=== PATIENT | male | born 2000 | race Caucasian/White ===

== ENCOUNTER 2020-05-09 08:21 | Day surgery (SDC) | payer OTHER ==
[2020-05-09] MEDS ORDERED: CEFAZOLIN 2 GM/D5W RTU 2 GM/50 ML RTUPB IV ONE (09:16)
[2020-05-09] MEDS ORDERED: ONDANSETRON HCL INJ/PF 4 MG/2 ML SDV ONE (09:58)
[2020-05-09] MEDS ORDERED: MIDAZOLAM 2 MG/2 ML INJ ONE (09:58)
[2020-05-09] MEDS ORDERED: DEXMEDETOMIDINE INJ 80 MCG/20 ML VIAL IV ONE (09:59)
[2020-05-09] MEDS ORDERED: PROPOFOL INJ 200 MG/20 ML VIAL IV ONE (09:59)
[2020-05-09] MEDS ORDERED: HYDROMORPHONE HCL INJ/PF 2 MG/ML AMPULE ONE (09:59)
[2020-05-09] MEDS ORDERED: SUCCINYLCHOLINE CHLORIDE INJ 200 MG/10 ML VIAL ONE (09:59)
[2020-05-09] MEDS ORDERED: DEXAMETHASONE SOD PHOSPHATE INJ 4 MG/1 ML VIAL ONE (09:59)
[2020-05-09] MEDS ORDERED: DEXAMETHASONE SOD PHOS INJ 10 MG/1 ML VIAL ONE (10:01)
[2020-05-09] MEDS ORDERED: BUPIVACAINE HCL 0.5%/EPI 1:200000 INJ 1.8 ML CARTRIDGE ONE (10:03)
[2020-05-09] MEDS ORDERED: MINERAL OIL (STERILE) 10 ML VIAL ONE (10:03)
[2020-05-09] MEDS ORDERED: BALANCED SALT IRRIG SOLN COMB2 15 ML BOTTLE ONE (10:03)
[2020-05-09] MEDS ORDERED: TOBRAMYCIN SULFATE/DEXAMETH OPH OINTMENT 3.5 GM ONE (10:03)
[2020-05-09] MEDS ORDERED: OXYMETAZOLINE HCL 0.05% NASAL SPRAY 15 ML BOTTLE ONE (10:04)
[2020-05-09] MEDS ORDERED: BUPIVACAINE HCL 0.5%-EPI 1:200000 INJ/PF 30 ML VIAL ONE (10:04)
[2020-05-09] MEDS ORDERED: BACITRACIN ZINC OINTMENT 15 GM ONE (10:04)
[2020-05-09] MEDS ORDERED: LIDOCAINE 1%/EPINEPHRINE INJ 20 ML VIAL ONE (10:54)
[2020-05-09] MEDS ORDERED: OXYCODONE-ACETAMINOPHEN 5-325 MG TABLET ONE (15:40)
--- NOTE | 2020-05-16 19:25 | Operative Report ---
Operative Report-[facility] Operative Report: DATE OF OPERATION: May 09, 2020 PREOPERATIVE DIAGNOSES: 1. Nasal septal deviation, Acquired 2. Bilateral inferior turbinate hypertrophy 3. Nasal Deformities, Acquired 4. Chronic Nasal Dyspnea 5. History of nasal trauma POSTOPERATIVE DIAGNOSES: 1. Nasal septal deviation, Acquired 2. Bilateral inferior turbinate hypertrophy 3. Nasal Deformities, Acquired 4. Chronic Nasal Dyspnea 5. History of nasal trauma PROCEDURES: 1. Endonasal/closed septorhinoplasty with CPT code 83625 with bilateral and central bony nasal pyramid osteotomies, cartilaginous grafting, and major septal repair. 2. Bilateral intramural inferior turbinate reductions using submucus resection techniques SURGEON: Dr. Russ Guardado Anesthesia Staff: BRUNO Brower ANESTHESIA: General endotracheal tube anesthesia/GETA DRAINS: None SPONGE COUNT: Verified NEEDLE COUNT: Verified SPECIMEN/MATERIALS FORWARD TO THE LAB: None ESTIMATED BLOOD LOSS: 100 mL TOTAL IV FLUIDS: 750 mL COMPLICATIONS: None FINDINGS: 1. Major right nasal deviation involving bone and cartilage with nasal dorsal bony irregularities. 2. Major serpentine nasal septal deviations with septal fractures and excessive cartilage adjacent the maxillary crest and septal spur/maxillary crest spur noted. 3. Bilteral inferior turbinate hypertrophy. 4. Bulbous nasal tip with thick skin and soft tissue envelope and contour deformities. 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 The patient was referred for and they complained of a history of chronic nasal dyspnea over the years. The patient clinically is noted to have nasal septal deviations, bilateral turbinate hypertrophy, and nasal deformities as a result of nasal trauma while on active duty. The patient has desired to undergo nasal surgery to improve functional nasal airflow and overall quality of life. The septorhinoplasty with major septal repair and bilateral inferior turbinate reduction procedure/surgery, and all of the risks and complications were all discussed in detail with the patient. They voiced an understanding, agreed to proceed, and consent was obtained. DESCRIPTION OF OPERATIVE PROCEDURE: The patient was taken to the main operating room and placed on the operating room table in the supine position. Appropriate monitors were placed. Using mask and IV access general anesthesia was induced. The patient was then transorally intubated without difficulty. The table was next positioned for nasal surgery. The patient underwent a nasal examination and local anesthetic with epinephrine was administered to establish a nasal block. The patient next had two Afrin soaked neuropatties placed into each nasal passage. The patient was then prepped and draped in the usual fashion for nasal surgery. The neuropatties were removed and the patient underwent a hemitransfixion incision. There was elevation of the mucoperichondrial and mucoperiosteal flaps without difficulty. Findings are as noted above. The bony cartilaginous junction was identified and divided and the most deviated portions of the bony and cartilaginous septum were removed and there were septal cartilage fractures noted. The maxillary crest spur/septal spur was removed with a V-gouge. Excessive and damaged cartilage was removed and contoured. During the process the caudal septum was released from the anterior nasal spine and maxillary crest. There was a greater than 1.5 X 1.5 cm cartilaginous L- Strut preserved. Attention was now turned to performing bilateral inferior turbinate reductions. The turbinate bipolar wand was used to make 2 - 3 intramural passes in each inferior turbinate. At this point the turbinate microdebrider system at a setting of 1500 RPM was used to perform bilateral inferior turbinate submucus resections. This was followed by use of the [place] elevator to outfracture each inferior turbinate. At this point the patient underwent modified marginal incisions on each side followed by elevation of the skin and soft tissue envelope in a subperiosteal plane over the nasal dorsum. Nasal dorsal rasp work was performed to address bony irregularities as noted above. There were also access points created with Vamsi scissors superior to the takeoff of the inferior turbinates. Subperiosteal dissection was carried out along the lateral nasal sidewalls for the osteotomes to travel in. At this point there were bilateral medial and lateral osteotomies performed. There was also an incision made over the nasal dorsum and central osteotomies were also performed. Once osteotomies were complete the bony nasal pyramid was mobilized into the midline. Additional dorsal rasp work was performed. At this point there was placement of morselized cartilage onlay grafts at the left and midline aspects of the supratip and mid vault areas. These grafts were held in position with a 6-0 Prolene suture. 6-0 Prolene suture was also used to reapproximate the dorsal midline incision for central osteotomies. At this point the nose was thoroughly suctioned and adequate hemostasis was noted. Once complete the septum was repositioned in the midline and fixed in place at the anterior nasal spine with 5-0 clear nylon suture. Cartilage which had been excised during the case was placed back between the mucosal flaps. At this point the mucosal flaps were reapproximated and the hemitransfixion incision was closed using Chromic suture. This was followed by placement of a modified Merocel nasal pack with Afrin and bacitracin ointment, 1 per nasal passage which were secured at the caudal aspect with 4-0 Prolene suture. The nose was then cleaned and dried followed by placement of Mastisol, Steri-Strips, and a Jacob aluminum pressure splint. Next, the patient was returned to the anesthesia staff and was allowed to emerge from general anesthesia. The patient was extubated in the main operating room and was then transported to the postanesthesia recovery unit in stable condition. There were no complications.
== END 2020-05-09 16:30 | disposition home or self-care (01) ==
LOC: SC 08:21
PROVIDERS: ATTEND Otolaryngology
DX: J34.2 Deviated nasal septum (principal); R06.09 Other forms of dyspnea; J34.89 Other specified disorders of nose and nasal sinuses; M95.0 Acquired deformity of nose; H74.03 Tympanosclerosis, bilateral; J30.9 Allergic rhinitis, unspecified; Z03.818 Encounter for observation for suspected exposure to other biological agents ruled out; Z72.0 Tobacco use
CPT/HCPCS: 87635; 00160; 30140; 30420; J2250; J3490 ×6; J1170; J0330; J2405; J2704; J1100; J0690; C9803; 160